=== PATIENT | male | born 1960 | race Caucasian/White ===

== ENCOUNTER 2022-04-17 09:49 | Outpatient (CLI) | payer BC | END 2022-04-17 09:50 | disposition home or self-care (01) | LOC: CSHMRI 09:49 | PROVIDERS: ATTEND Family Medicine | DX: R19.00 Intra-abdominal and pelvic swelling, mass and lump, unspecified site (principal); K86.89 Other specified diseases of pancreas; K76.9 Liver disease, unspecified; R19.09 Other intra-abdominal and pelvic swelling, mass and lump; E27.9 Disorder of adrenal gland, unspecified | CPT/HCPCS: 74183; 82565 ==

== ENCOUNTER 2023-03-21 17:13 | Emergency (ER) | payer BC ==
[2023-03-21] MEDS ORDERED: Meclizine HCl 25 MG TAB ONE (18:00)
[2023-03-21 18:13] LABS: #Eosinphils 0.1 10x3/uL (0.0-0.5); #Monocytes 1.3 10x3/uL (0.0-1.1); #Neutrophils 4.3 10x3/uL (1.5-8.4); %Basophils 0.6 % (0.0-2.0); %Eosinophils 1.7 % (0.0-6.0); %Lymphocytes 12.6 % (18.0-47.0); %Monocytes 19.1 % (0.0-10.0); %Neutrophils 65.8 % (40.0-75.0); Hematocrit 34.9 % (38.8-50.0); Hemoglobin 11.1 g/dL (13.5-17.5); Mean Corpuscular HGB CONC 31.8 g/dL (32.0-36.0); Mean Corpuscular Hemoglobin 30.2 pg (27.0-33.0); Mean Corpuscular Volume 94.8 fl (81.2-95.1); Mean Platelet Volume 10.1 fl (7.4-10.4); Platelet Count 354 10x3/uL (150-450); RBC Distribution Width 16.7 % (11.5-14.5); Red Blood Cell (RBC) Count 3.68 10x6/uL (4.32-5.72); White Blood Cell (WBC) Count 6.6 10x3/uL (3.5-10.5)
[2023-03-21 18:18] LABS: ALT (SGPT) 59 U/L (8-55); AST (SGOT) 34 U/L (5-34); Albumin 3.9 g/dL (3.4-4.8); Alkaline Phosphatase 102 U/L (40-110); Anion Gap 17 mmol/L (10-20); BUN (Urea Nitrogen) 22 mg/dL (8.4-25.7); Bilirubin, Total 0.2 mg/dL (0.2-1.2); Calc. Creatinine Clearance 0 mL/min (70-130); Calcium 9.5 mg/dL (7.8-10.44); Carbon Dioxide 25 mmol/L (23-31); Chloride 99 mmol/L (98-107); Estimated GFR 95; Globulin 1.7 g/dL (2.4-3.5); Glucose 186 mg/dL (80-115); Protein, Total 5.6 g/dL (5.8-8.1); Sodium 136 mmol/L (136-145)
[2023-03-21 18:24] LABS: Troponin I Less than 0.010 ng/mL (< 0.028)
== END 2023-03-21 19:09 | disposition home or self-care (01) ==
LOC: CSHERS 17:13
DX: R42 Dizziness and giddiness (principal); I10 Essential (primary) hypertension; E11.9 Type 2 diabetes mellitus without complications
CPT/HCPCS: 36415; 71045; 80053; 83605; 84484; 85025; 93005